=== PATIENT | male | born 1940 ===

== ENCOUNTER → 2018-02-28 | Outpatient (CLI) | payer MEDICARE, OTHER | END | disposition home or self-care (01) | LOC: CFH 09:07 | PROVIDERS: ATTEND Internal Medicine Cardiovascular Disease | DX: I35.8 Other nonrheumatic aortic valve disorders (principal); I10 Essential (primary) hypertension; I44.7 Left bundle-branch block, unspecified | CPT/HCPCS: 93306 ==

== ENCOUNTER 2020-04-19 12:29 | Inpatient (IN) | payer MEDICARE, OTHER ==
[~2020-04-19] VITALS: Ht 188 cm; Wt 113.4 kg
[2020-04-19] MEDS ORDERED: SODIUM CHLORIDE FLUSH 10ML SYR IVF ONE (13:30)
[2020-04-19] MEDS ORDERED: SODIUM CHLORIDE 0.9% 1,000ML IVBOLUS ONE (13:30)
[2020-04-19 13:56] LABS: BASOPHILS % (AUTO) 0 % (0-1); EOSINOPHILS % (AUTO) 0 % (1-7); LYMPHOCYTES % (AUTO) 9 % (22-44); MEAN CORPUSCULAR HEMOGLOBIN 27.8 pg (27.5-34.5); MEAN CORPUSCULAR HGB CONC 32.2 g/dL (33.2-36.2); MEAN PLATELET VOLUME 8.5 fL (7.4-10.4); MONOCYTES % (AUTO) 11 % (2-9); NEUTROPHILS % (AUTO) 80 % (42-75); PLATELET COUNT 220 x10^3/uL (130-400); RED BLOOD COUNT 4.23 x10^6/uL (4.38-5.82); RED CELL DISTRIBUTION WIDTH 21.7 % (9.4-14.8)
--- NOTE | 2020-04-19 14:03 | NUR ---
PASSED OUT IN BATHROOM. PT TESTED POSITIVE FOR CHARLENE MUNOZ
[2020-04-19 14:21] LABS: ALBUMIN 3.2 g/dL (3.4-5.0); ANION GAP 8 mmol/L (5-15); CALCIUM 8.7 mg/dL (8.5-10.1); CHLORIDE 100 mmol/L (98-107); CREATININE 0.86 mg/dL (0.7-1.3)
[2020-04-19 14:49] LABS: ANISOCYTOSIS 1+; MD MORPH REVIEW ONLY
[2020-04-19 14:50] LABS: <PLATELET ESTIMATE> ADEQUATE; <PLT MORPHOLOGY> NORMAL PLT MORPH; OVALOCYTES 1+; POLYCHROMASIA 1+
[2020-04-19] MEDS ORDERED: LISI1TAB23 PO (15:37)
[2020-04-19] MEDS ORDERED: wixela (15:38)
[2020-04-19] MEDS ORDERED: ASPIRIN PO (15:42)
[2020-04-19] MEDS ORDERED: SODIUM CHLORIDE FLUSH 10ML SYR IVF PRN (16:00)
[2020-04-19] MEDS ORDERED: SODIUM CHLORIDE 0.9% 1,000 ML IV ONE (16:00)
[2020-04-19] MEDS ORDERED: CEFTRIAXONE PMX 1GM/50ML 50 ML ONE (16:34)
--- NOTE | 2020-04-19 16:39 | NUR ---
HOSPITALIST AT BEDSIDE
[2020-04-19] MEDS ORDERED: CEFTRIAXONE PMX 1GM/50ML 50 ML IVPB ONE (17:00)
[2020-04-19] MEDS ORDERED: AZITHROMYCIN 500 MG in SODIUM CHLORIDE 0.9% 250 ML IVPB ONE (17:00)
--- NOTE | 2020-04-19 17:22 | NUR ---
PT DINNER DELIVERED
[2020-04-19] MEDS ORDERED: ACETAMINOPHEN 325 MG TABLET PO PRN (17:30)
[2020-04-19 17:50] LABS: TROPONIN I < 0.015 ng/mL (0.000-0.045)
[2020-04-19 17:50] LABS: D-DIMER 4.87 ug/mlFEU (0.00-0.52); INTERNATIONAL NORMALIZED RATIO 1.01 (0.93-1.1); PROTHROMBIN TIME 10.7 Seconds (9.6-11.5)
--- NOTE | 2020-04-19 18:11 | NUR ---
PHONE REPORT GIVEN TO DMITRIY LEYVA
[2020-04-19 19:00] VITALS: BP 107/86
[2020-04-19] MEDS ORDERED: LISIN MC SCH (19:30)
[2020-04-19] MEDS ORDERED: HCTZ MC SCH (19:30)
[2020-04-19] MEDS: ENOXAPARIN 30 MG/0.3 ML SQ SCH (20:50)
[2020-04-19] MEDS: ASCORBIC ACID 500 MG TABLET PO SCH (20:50)
[2020-04-19] MEDS: SODIUM CHLORIDE 0.9% 1,000 ML IV SCH (20:51)
[2020-04-19] MEDS: DOXYCYCLINE 100 MG in DEXTROSE 5% 250 ML IV SCH (20:55)
[2020-04-20 00:30] LABS: TROPONIN I < 0.015 ng/mL (0.000-0.045)
[2020-04-20 02:00] VITALS: BP 128/71
[2020-04-20 06:14] LABS: BASOPHILS % (AUTO) 0 % (0-1); EOSINOPHILS % (AUTO) 0 % (1-7); LYMPHOCYTES % (AUTO) 24 % (22-44); MEAN CORPUSCULAR HEMOGLOBIN 27.1 pg (27.5-34.5); MEAN CORPUSCULAR HGB CONC 31.6 g/dL (33.2-36.2); MEAN PLATELET VOLUME 8.6 fL (7.4-10.4); MONOCYTES % (AUTO) 18 % (2-9); NEUTROPHILS % (AUTO) 57 % (42-75); PLATELET COUNT 210 x10^3/uL (130-400); RED BLOOD COUNT 3.89 x10^6/uL (4.38-5.82); RED CELL DISTRIBUTION WIDTH 21.7 % (9.4-14.8)
[2020-04-20 06:22] LABS: ALBUMIN 2.5 g/dL (3.4-5.0); CHLORIDE 106 mmol/L (98-107)
[2020-04-20 06:33] LABS: MD NO
[2020-04-20 06:37] LABS: ALANINE AMINOTRANSFERASE 22 U/L (12-78); ALKALINE PHOSPHATASE 65 U/L (45-117); ANION GAP 8 mmol/L (5-15); BILIRUBIN,TOTAL 0.3 mg/dL (0.2-1.0); CALCIUM 7.6 mg/dL (8.5-10.1); CREATININE 0.55 mg/dL (0.7-1.3); TOTAL PROTEIN 6.4 g/dL (6.4-8.2)
[2020-04-20 08:19] VITALS: BP 152/76
[2020-04-20] MEDS: DOXYCYCLINE 100 MG in DEXTROSE 5% 250 ML IV SCH ×2 (08:59→21:35)
[2020-04-20] MEDS: SODIUM CHLORIDE 0.9% 1,000 ML IV SCH ×2 (09:00→23:45)
[2020-04-20] MEDS: ENOXAPARIN 30 MG/0.3 ML SQ SCH (09:00)
[2020-04-20] MEDS: CHOLECALCIFEROL 5,000u TAB PO SCH (09:00)
[2020-04-20] MEDS: ASPIRIN 325 MG TABLET PO SCH (09:03)
[2020-04-20] MEDS: ZINC SULFATE 220 MG CAPSULE PO SCH (09:03)
[2020-04-20] MEDS: LISINOPRIL 10 MG TABLET PO SCH ×2 (09:04→17:00)
[2020-04-20] MEDS: HYDROCHLOROTHIAZIDE 12.5 MG CAPSULE PO SCH ×2 (09:04→17:00)
[2020-04-20] MEDS: ASCORBIC ACID 500 MG TABLET PO SCH ×2 (09:04→17:00)
[2020-04-20 09:30] VITALS: BP 152/55
[2020-04-20 09:35] VITALS: BP 149/73
[2020-04-20 09:40] VITALS: BP 159/68
[2020-04-20] MEDS: Enoxaparin 1 mg/kg protocol SQ SCH ×2 (11:30→23:30)
[2020-04-20] MEDS ORDERED: PHARMACY MAY ADJ FOR RENAL FX MC PRN (11:30)
[2020-04-20] MEDS: ENOXAPARIN 100 MG/ML SQ SCH ×2 (12:00→23:44)
[2020-04-20] MEDS: CEFTRIAXONE PMX 1GM/50ML 50 ML IV SCH (14:51)
[2020-04-20] MEDS ORDERED: OMNIPAQUE 350 MG/ML, 100ML BOTTLE ONE (18:26)
[2020-04-20 20:04] VITALS: BP 165/80
[2020-04-21 01:50] LABS: MICROSCOPIC NOT IND
[2020-04-21 01:52] VITALS: BP 122/68
[2020-04-21 07:07] VITALS: BP 159/81
[2020-04-21 07:32] LABS: BASOPHILS % (AUTO) 0 % (0-1); EOSINOPHILS % (AUTO) 0 % (1-7); LYMPHOCYTES % (AUTO) 15 % (22-44); MEAN CORPUSCULAR HEMOGLOBIN 27.4 pg (27.5-34.5); MEAN CORPUSCULAR HGB CONC 32.1 g/dL (33.2-36.2); MEAN PLATELET VOLUME 8.4 fL (7.4-10.4); MONOCYTES % (AUTO) 11 % (2-9); NEUTROPHILS % (AUTO) 73 % (42-75); PLATELET COUNT 220 x10^3/uL (130-400); RED BLOOD COUNT 3.92 x10^6/uL (4.38-5.82); RED CELL DISTRIBUTION WIDTH 21.8 % (9.4-14.8)
[2020-04-21 07:43] LABS: ALBUMIN 2.6 g/dL (3.4-5.0); ANION GAP 7 mmol/L (5-15); CALCIUM 8.3 mg/dL (8.5-10.1); CHLORIDE 104 mmol/L (98-107)
[2020-04-21 07:47] LABS: ALANINE AMINOTRANSFERASE 20 U/L (12-78); ALKALINE PHOSPHATASE 70 U/L (45-117); BILIRUBIN,TOTAL 0.5 mg/dL (0.2-1.0); CREATININE 0.65 mg/dL (0.7-1.3); TOTAL PROTEIN 6.7 g/dL (6.4-8.2)
[2020-04-21 07:48] LABS: MD NO
[2020-04-21] MEDS: ASPIRIN 325 MG TABLET PO SCH (09:53)
[2020-04-21] MEDS: DOXYCYCLINE 100 MG in DEXTROSE 5% 250 ML IV SCH ×2 (09:53→20:30)
[2020-04-21] MEDS: HYDROCHLOROTHIAZIDE 12.5 MG CAPSULE PO SCH ×2 (09:53→16:12)
[2020-04-21] MEDS: CHOLECALCIFEROL 5,000u TAB PO SCH (09:54)
[2020-04-21] MEDS: LISINOPRIL 10 MG TABLET PO SCH ×2 (09:54→16:12)
[2020-04-21] MEDS: ZINC SULFATE 220 MG CAPSULE PO SCH (09:54)
[2020-04-21] MEDS: ASCORBIC ACID 500 MG TABLET PO SCH ×2 (09:54→16:12)
[2020-04-21] MEDS: Enoxaparin 1 mg/kg protocol SQ SCH ×2 (11:36→23:30)
[2020-04-21] MEDS: ENOXAPARIN 100 MG/ML SQ SCH ×2 (12:05→23:33)
[2020-04-21 13:42] VITALS: BP 166/81
[2020-04-21] MEDS: CEFTRIAXONE PMX 1GM/50ML 50 ML IV SCH (14:36)
[2020-04-21] MEDS ORDERED: POTASSIUM CHLORIDE 20 MEQ TAB.ER.PRT PO ONE (16:30)
[2020-04-21 19:03] VITALS: BP 136/70
[2020-04-21] MEDS ORDERED: DEXAMETHASONE 4 MG/ML, 5ML ONE (19:57)
[2020-04-21] MEDS: DEXAMETHASONE 4 MG/ML, 1ML IVPush SCH (20:30)
[2020-04-22 00:14] VITALS: BP 151/73
[2020-04-22 06:38] LABS: BASOPHILS % (AUTO) 0 % (0-1); EOSINOPHILS % (AUTO) 0 % (1-7); LYMPHOCYTES % (AUTO) 13 % (22-44); MEAN CORPUSCULAR HEMOGLOBIN 27.3 pg (27.5-34.5); MEAN CORPUSCULAR HGB CONC 31.7 g/dL (33.2-36.2); MEAN PLATELET VOLUME 8.6 fL (7.4-10.4); MONOCYTES % (AUTO) 10 % (2-9); NEUTROPHILS % (AUTO) 77 % (42-75); PLATELET COUNT 230 x10^3/uL (130-400); RED BLOOD COUNT 3.95 x10^6/uL (4.38-5.82); RED CELL DISTRIBUTION WIDTH 21.6 % (9.4-14.8)
[2020-04-22 06:40] VITALS: BP 153/80
[2020-04-22 06:40] LABS: MD NO
[2020-04-22 06:48] LABS: ANION GAP 7 mmol/L (5-15); CALCIUM 8.5 mg/dL (8.5-10.1); CHLORIDE 104 mmol/L (98-107); CREATININE 0.54 mg/dL (0.7-1.3)
[2020-04-22] MEDS ORDERED: DEXAMETHASONE 4 MG/ML, 5ML ONE (08:29)
[2020-04-22] MEDS: DOXYCYCLINE 100 MG in DEXTROSE 5% 250 ML IV SCH (08:37)
[2020-04-22] MEDS: DEXAMETHASONE 4 MG/ML, 1ML IVPush SCH (08:38)
[2020-04-22] MEDS: HYDROCHLOROTHIAZIDE 12.5 MG CAPSULE PO SCH ×2 (08:38→16:26)
[2020-04-22] MEDS: ZINC SULFATE 220 MG CAPSULE PO SCH (08:38)
[2020-04-22] MEDS: ASCORBIC ACID 500 MG TABLET PO SCH ×2 (08:38→16:26)
[2020-04-22] MEDS: CHOLECALCIFEROL 5,000u TAB PO SCH (08:38)
[2020-04-22] MEDS: ASPIRIN 325 MG TABLET PO SCH (08:38)
[2020-04-22] MEDS: LISINOPRIL 10 MG TABLET PO SCH ×2 (08:38→16:26)
[2020-04-22] MEDS ORDERED: REMDESIVIR 200 MG in SODIUM CHLORIDE 0.9% 250 ML IVPB ONE (12:00)
[2020-04-22] MEDS: ENOXAPARIN 100 MG/ML SQ SCH ×2 (12:15→23:54)
[2020-04-22 12:41] VITALS: BP 126/71
[2020-04-22] MEDS: CEFTRIAXONE PMX 1GM/50ML 50 ML IV SCH (14:50)
[2020-04-22 19:11] VITALS: BP 132/76
[2020-04-22] MEDS: DOXYCYCLINE 100MG TABLET PO SCH (21:15)
[2020-04-23] VITALS: BP 154/77
[2020-04-23 05:59] LABS: BASOPHILS % (AUTO) 0 % (0-1); EOSINOPHILS % (AUTO) 0 % (1-7); LYMPHOCYTES % (AUTO) 9 % (22-44); MEAN CORPUSCULAR HEMOGLOBIN 27.2 pg (27.5-34.5); MEAN PLATELET VOLUME 8.4 fL (7.4-10.4); MONOCYTES % (AUTO) 9 % (2-9); NEUTROPHILS % (AUTO) 81 % (42-75); PLATELET COUNT 274 x10^3/uL (130-400); RED BLOOD COUNT 3.79 x10^6/uL (4.38-5.82); RED CELL DISTRIBUTION WIDTH 21.3 % (9.4-14.8)
[2020-04-23 06:05] LABS: MD NO
[2020-04-23 06:12] LABS: ALBUMIN 2.4 g/dL (3.4-5.0); ANION GAP 6 mmol/L (5-15); CALCIUM 8.4 mg/dL (8.5-10.1); CHLORIDE 104 mmol/L (98-107)
[2020-04-23 06:13] LABS: ALANINE AMINOTRANSFERASE 25 U/L (12-78); ALKALINE PHOSPHATASE 59 U/L (45-117); BILIRUBIN,TOTAL 0.3 mg/dL (0.2-1.0); CREATININE 0.66 mg/dL (0.7-1.3); TOTAL PROTEIN 6.5 g/dL (6.4-8.2)
[2020-04-23 06:18] VITALS: BP 147/81
[2020-04-23] MEDS: ASCORBIC ACID 500 MG TABLET PO SCH ×2 (07:45→16:18)
[2020-04-23] MEDS: CHOLECALCIFEROL 5,000u TAB PO SCH (07:45)
[2020-04-23] MEDS: ZINC SULFATE 220 MG CAPSULE PO SCH (07:45)
[2020-04-23] MEDS: ASPIRIN 325 MG TABLET PO SCH (07:45)
[2020-04-23] MEDS: DOXYCYCLINE 100MG TABLET PO SCH ×2 (07:46→20:05)
[2020-04-23] MEDS: DEXAMETHASONE 4 MG/ML, 1ML IVPush SCH (07:46)
[2020-04-23] MEDS: HYDROCHLOROTHIAZIDE 12.5 MG CAPSULE PO SCH (07:52)
[2020-04-23] MEDS: LISINOPRIL 10 MG TABLET PO SCH ×2 (07:53→16:18)
[2020-04-23] MEDS ORDERED: FLUTICASONE NASAL SPRAY 16GM NAS PRN (10:00)
[2020-04-23 12:13] VITALS: BP 117/67
[2020-04-23] MEDS: ENOXAPARIN 100 MG/ML SQ SCH (12:23)
[2020-04-23] MEDS: REMDESIVIR 100 MG in SODIUM CHLORIDE 0.9% 250 ML IVPB SCH (12:23)
[2020-04-23] MEDS: CEFTRIAXONE PMX 1GM/50ML 50 ML IV SCH (14:31)
[2020-04-23] MEDS: THIAMINE 100MG TABLET PO SCH (16:18)
[2020-04-23 19:57] VITALS: BP 125/75
[2020-04-23] MEDS: MELATONIN 5 MG TABLET PO SCH (20:05)
[2020-04-24] MEDS: ENOXAPARIN 100 MG/ML SQ SCH ×2 (00:30→13:26)
[2020-04-24 00:59] VITALS: BP 132/72
[2020-04-24 06:35] LABS: ALBUMIN 2.4 g/dL (3.4-5.0); ANION GAP 8 mmol/L (5-15); CALCIUM 8.6 mg/dL (8.5-10.1); CHLORIDE 106 mmol/L (98-107)
[2020-04-24 06:39] LABS: ALANINE AMINOTRANSFERASE 27 U/L (12-78); ALKALINE PHOSPHATASE 58 U/L (45-117); BILIRUBIN,TOTAL 0.4 mg/dL (0.2-1.0); CREATININE 0.64 mg/dL (0.7-1.3); TOTAL PROTEIN 6.6 g/dL (6.4-8.2)
[2020-04-24 07:04] VITALS: BP 134/72
[2020-04-24] MEDS ORDERED: DEXAMETHASONE 4 MG/ML, 5ML ONE (09:09)
[2020-04-24] MEDS: ASCORBIC ACID 500 MG TABLET PO SCH ×2 (09:18→16:43)
[2020-04-24] MEDS: ZINC SULFATE 220 MG CAPSULE PO SCH (09:18)
[2020-04-24] MEDS: CHOLECALCIFEROL 5,000u TAB PO SCH (09:18)
[2020-04-24] MEDS: ASPIRIN 325 MG TABLET PO SCH (09:19)
[2020-04-24] MEDS: DOXYCYCLINE 100MG TABLET PO SCH ×2 (09:19→20:01)
[2020-04-24] MEDS: THIAMINE 100MG TABLET PO SCH (09:19)
[2020-04-24] MEDS: DEXAMETHASONE 4 MG/ML, 1ML IVPush SCH (09:20)
[2020-04-24] MEDS: LISINOPRIL 10 MG TABLET PO SCH ×2 (09:35→18:31)
[2020-04-24 12:12] VITALS: BP 121/64
[2020-04-24] MEDS: REMDESIVIR 100 MG in SODIUM CHLORIDE 0.9% 250 ML IVPB SCH (13:27)
[2020-04-24] MEDS: CEFTRIAXONE PMX 1GM/50ML 50 ML IV SCH (16:44)
[2020-04-24 19:51] VITALS: BP 155/69
[2020-04-24] MEDS: MELATONIN 5 MG TABLET PO SCH (20:01)
[2020-04-24 23:55] VITALS: BP 151/71
[2020-04-25] MEDS: ENOXAPARIN 120MG/0.8ML SQ SCH ×2 (00:17→12:02)
[2020-04-25 04:00] VITALS: BP 155/75
[2020-04-25 04:01] VITALS: BP 135/73
[2020-04-25 06:59] VITALS: BP 141/67
[2020-04-25 07:21] LABS: ANION GAP 6 mmol/L (5-15); CALCIUM 8.4 mg/dL (8.5-10.1); CHLORIDE 106 mmol/L (98-107)
[2020-04-25 07:26] LABS: ALANINE AMINOTRANSFERASE 34 U/L (12-78); ALBUMIN 2.2 g/dL (3.4-5.0); ALKALINE PHOSPHATASE 59 U/L (45-117); BILIRUBIN,TOTAL 0.5 mg/dL (0.2-1.0); CREATININE 0.55 mg/dL (0.7-1.3); TOTAL PROTEIN 6.3 g/dL (6.4-8.2)
[2020-04-25] MEDS ORDERED: DEXAMETHASONE 4 MG/ML, 5ML ONE (08:43)
[2020-04-25] MEDS: ZINC SULFATE 220 MG CAPSULE PO SCH (08:58)
[2020-04-25] MEDS: ASCORBIC ACID 500 MG TABLET PO SCH ×2 (08:58→16:48)
[2020-04-25] MEDS: THIAMINE 100MG TABLET PO SCH (08:58)
[2020-04-25] MEDS: CHOLECALCIFEROL 5,000u TAB PO SCH (08:58)
[2020-04-25] MEDS: DEXAMETHASONE 4 MG/ML, 1ML IVPush SCH (08:58)
[2020-04-25] MEDS: DOXYCYCLINE 100MG TABLET PO SCH ×2 (08:59→20:19)
[2020-04-25] MEDS: ASPIRIN 325 MG TABLET PO SCH (08:59)
[2020-04-25] MEDS: LISINOPRIL 10 MG TABLET PO SCH ×2 (10:05→16:48)
[2020-04-25] MEDS: REMDESIVIR 100 MG in SODIUM CHLORIDE 0.9% 250 ML IVPB SCH (12:01)
[2020-04-25 13:18] VITALS: BP 138/74
[2020-04-25] MEDS: CEFTRIAXONE PMX 1GM/50ML 50 ML IV SCH (14:23)
[2020-04-25 19:58] VITALS: BP 139/72
[2020-04-25] MEDS: APIXABAN 5 MG TABLET PO SCH (20:20)
[2020-04-25] MEDS: MELATONIN 5 MG TABLET PO SCH (20:20)
[2020-04-26 00:41] VITALS: BP 161/77
[2020-04-26 05:02] LABS: ALBUMIN 2.1 g/dL (3.4-5.0); ANION GAP 5 mmol/L (5-15); CALCIUM 8.4 mg/dL (8.5-10.1); CHLORIDE 107 mmol/L (98-107)
[2020-04-26 05:22] LABS: ALANINE AMINOTRANSFERASE 35 U/L (12-78); ALKALINE PHOSPHATASE 61 U/L (45-117); BILIRUBIN,TOTAL 0.3 mg/dL (0.2-1.0); CREATININE 0.52 mg/dL (0.7-1.3); TOTAL PROTEIN 6.2 g/dL (6.4-8.2)
[2020-04-26 08:06] VITALS: BP 167/77
[2020-04-26] MEDS ORDERED: DEXAMETHASONE 4 MG/ML, 5ML ONE (08:39)
[2020-04-26] MEDS: APIXABAN 5 MG TABLET PO SCH (08:51)
[2020-04-26] MEDS: CHOLECALCIFEROL 5,000u TAB PO SCH (08:51)
[2020-04-26] MEDS: ASPIRIN 325 MG TABLET PO SCH (08:51)
[2020-04-26] MEDS: ZINC SULFATE 220 MG CAPSULE PO SCH (08:51)
[2020-04-26] MEDS: THIAMINE 100MG TABLET PO SCH (08:51)
[2020-04-26] MEDS: DOXYCYCLINE 100MG TABLET PO SCH (08:51)
[2020-04-26] MEDS: ASCORBIC ACID 500 MG TABLET PO SCH ×2 (08:52→17:14)
[2020-04-26] MEDS: DEXAMETHASONE 4 MG/ML, 1ML IVPush SCH (08:52)
[2020-04-26] MEDS: LISINOPRIL 10 MG TABLET PO SCH ×2 (09:17→17:14)
[2020-04-26] MEDS ORDERED: CHOL500045 PO (11:54)
[2020-04-26] MEDS ORDERED: MELA5TAB14 PO (11:54)
[2020-04-26] MEDS ORDERED: THIA100T67 PO (11:54)
[2020-04-26] MEDS ORDERED: ZINC220C7 PO (11:54)
[2020-04-26] MEDS ORDERED: APIX5TAB PO ×2 (11:54)
[2020-04-26] MEDS ORDERED: ASCO500T9 PO (11:54)
[2020-04-26] MEDS: CEFTRIAXONE PMX 1GM/50ML 50 ML IV SCH (13:00)
[2020-04-26] MEDS: REMDESIVIR 100 MG in SODIUM CHLORIDE 0.9% 250 ML IVPB SCH (13:00)
[2020-04-26 13:08] VITALS: BP 122/66
[2020-04-26] MEDS ORDERED: METH4TAB2 PO (15:35)
== END 2020-04-26 19:13 | disposition home health service (06) | DRG 177 ==
LOC: ED 15:29 → EDIP 15:51 → 4WST 18:34 → EDIP 18:35 → 4WST 19:08
PROVIDERS: ADMIT Family Medicine; ATTEND Family Medicine
DX: U07.1 COVID-19 (principal); J12.89 Other viral pneumonia; J96.01 Acute respiratory failure with hypoxia; E87.1 Hypo-osmolality and hyponatremia; I82.592 Chronic embolism and thrombosis of other specified deep vein of left lower extremity; D72.810 Lymphocytopenia; D64.9 Anemia, unspecified; E86.0 Dehydration; R73.9 Hyperglycemia, unspecified; Z66 Do not resuscitate; I10 Essential (primary) hypertension; J45.909 Unspecified asthma, uncomplicated; Y93.E1 Activity, personal bathing and showering; Z79.82 Long term (current) use of aspirin; Z82.3 Family history of stroke; Z87.891 Personal history of nicotine dependence; Z95.828 Presence of other vascular implants and grafts; Z79.899 Other long term (current) drug therapy
CPT/HCPCS: 36415; 71045; 71275; 80048; 80053; 81003; 82040; 83605; 83735; 84100; 84443; 84484; 85025; 85379; 85384; 85610; 86140; 87040; 93005; 93306; 93970; 96374; 99291; G0378; J0456; J0696; J1100; J1650; J7060; Q9967; J7030; J7050

== ENCOUNTER 2020-05-23 19:11 | Inpatient (IN) | payer MEDICARE, OTHER ==
[~2020-05-23] VITALS: Ht 188 cm; Wt 105.2 kg
[~2020-05-23 19:11] MED LIST: APIX5TAB PO; ASCO500T9 PO; ASPIRIN PO; CHOL500045 PO; LISI1TAB23 PO; MELA5TAB14 PO; METH4TAB2 PO; THIA100T67 PO; ZINC220C7 PO; wixela
[2020-05-23] MEDS ORDERED: SODIUM CHLORIDE FLUSH 10ML SYR IVF ONE (19:30)
[2020-05-23] MEDS ORDERED: SODIUM CHLORIDE 0.9% 1,000ML IVBOLUS ONE (19:30)
--- NOTE | 2020-05-23 19:37 | NUR ---
pt bib remsa, chief complaint of syncope episode x2. pt a&ox4, calm and cooperative. on cr monitor, side rails up x2 and call light within reach.
[2020-05-23 19:44] LABS: BASOPHILS % (AUTO) 1 % (0-1); EOSINOPHILS % (AUTO) 0 % (1-7); LYMPHOCYTES % (AUTO) 5 % (22-44); MEAN CORPUSCULAR HEMOGLOBIN 27.2 pg (27.5-34.5); MEAN CORPUSCULAR HGB CONC 31.2 g/dL (33.2-36.2); MEAN PLATELET VOLUME 7.8 fL (7.4-10.4); MONOCYTES % (AUTO) 3 % (2-9); NEUTROPHILS % (AUTO) 91 % (42-75); PLATELET COUNT 502 x10^3/uL (130-400); RED BLOOD COUNT 4.02 x10^6/uL (4.38-5.82); RED CELL DISTRIBUTION WIDTH 22.5 % (9.4-14.8)
[2020-05-23 19:56] LABS: ALBUMIN 2.7 g/dL (3.4-5.0); ANION GAP 5 mmol/L (5-15); CALCIUM 8.8 mg/dL (8.5-10.1); CHLORIDE 105 mmol/L (98-107); MD NO
[2020-05-23 20:02] LABS: ALANINE AMINOTRANSFERASE 20 U/L (12-78); ALKALINE PHOSPHATASE 70 U/L (45-117); BILIRUBIN,TOTAL 0.4 mg/dL (0.2-1.0); CREATININE 0.91 mg/dL (0.7-1.3); TOTAL PROTEIN 6.8 g/dL (6.4-8.2); TROPONIN I < 0.015 ng/mL (0.000-0.045)
[2020-05-23 20:15] LABS: INTERNATIONAL NORMALIZED RATIO 1.03 (0.93-1.1); PROTHROMBIN TIME 10.9 Seconds (9.6-11.5)
[2020-05-23] MEDS ORDERED: CEFTRIAXONE PMX 1GM/50ML 50 ML ONE (20:51)
[2020-05-23] MEDS ORDERED: GUAIFENESIN/DM 200-20MG, 10ML UDC PO PRN (21:00)
[2020-05-23] MEDS ORDERED: SODIUM CHLORIDE 0.9% 1,000 ML IV SCH (21:00)
[2020-05-23] MEDS ORDERED: CEFTRIAXONE PMX 1GM/50ML 50 ML IVPB ONE (21:00)
[2020-05-23] MEDS ORDERED: ACETAMINOPHEN 325 MG TABLET PO PRN (21:00)
[2020-05-23] MEDS ORDERED: DOCUSATE 100 MG CAPSULE PO PRN (21:00)
[2020-05-23] MEDS ORDERED: HEPARIN 5,000 UNITS/ML, 1ML SQ SCH (21:00)
[2020-05-23] MEDS ORDERED: AZITHROMYCIN 500 MG in SODIUM CHLORIDE 0.9% 250 ML IVPB ONE (21:00)
--- NOTE | 2020-05-23 21:07 | NUR ---
ONE SET OF BLOOD CULTURES DRAWN.
--- NOTE | 2020-05-23 22:05 | NUR ---
HOSPITAL BED REQUESTED.
[2020-05-23 22:50] LABS: PLATELET (DIC) 447 x10^3/uL (130-400)
--- NOTE | 2020-05-23 22:53 | NUR ---
REPORT TO FRANCIS IZAGUIRRE.
[2020-05-23 22:59] LABS: C-REACTIVE PROTEIN, QUANT 0.38 mg/dL (0.02-0.49)
[2020-05-23 23:03] LABS: TROPONIN I < 0.015 ng/mL (0.000-0.045)
[2020-05-23 23:22] LABS: FIBRINOGEN 331 mg/dL (200-340); PROTIME 10.4 Seconds (9.6-11.5); PTT 22 Seconds (25-31)
[2020-05-23 23:50] LABS: D-DIMER (DIC) > 35.00 ug/mlFEU (0.00-0.52)
--- NOTE | 2020-05-24 00:10 | NUR ---
PT RESTING IN FLOOR BED, PT A SLEEP WITH NO CURRENT WANTS OR NEEDS. PT BREATHS EQUAL AND UNLABORED. PT ON MONITOR WITH VSS.
--- NOTE | 2020-05-24 02:00 | NUR ---
PT RESTING IN FLOOR BED, PT A SLEEP WITH NO CURRENT WANTS OR NEEDS. PT BREATHS EQUAL AND UNLABORED. PT ON MONITOR WITH VSS.
[2020-05-24] MEDS ORDERED: ALBUTEROL HFA 90 MCG/SPRAY INH PRN (04:30)
[2020-05-24 05:25] LABS: BASOPHILS % (AUTO) 1 % (0-1); EOSINOPHILS % (AUTO) 5 % (1-7); LYMPHOCYTES % (AUTO) 12 % (22-44); MEAN CORPUSCULAR HEMOGLOBIN 28.3 pg (27.5-34.5); MEAN PLATELET VOLUME 7.6 fL (7.4-10.4); MONOCYTES % (AUTO) 10 % (2-9); NEUTROPHILS % (AUTO) 72 % (42-75); PLATELET COUNT 435 x10^3/uL (130-400); RED CELL DISTRIBUTION WIDTH 21.9 % (9.4-14.8)
[2020-05-24 05:34] LABS: ANION GAP 4 mmol/L (5-15); CALCIUM 8.6 mg/dL (8.5-10.1); CHLORIDE 107 mmol/L (98-107)
[2020-05-24 05:35] LABS: MD NO
[2020-05-24 05:39] LABS: CREATININE 0.72 mg/dL (0.7-1.3); TROPONIN I < 0.015 ng/mL (0.000-0.045)
--- NOTE | 2020-05-24 07:10 | NUR ---
RECEIVED REPORT FROM FRANCIS Aparicio RN.
--- NOTE | 2020-05-24 07:25 | NUR ---
PT RESTING IN BED IN NAD. PT DENIES ANY NEEDS AT THIS TIME AND REFUSED BREAKFAST RIGHT NOW. PT ON MONITOR AND CALL LIGHT WITHIN REACH.
[2020-05-24] MEDS ORDERED: APIXABAN 5 MG TABLET ONE (08:44)
[2020-05-24] MEDS: APIXABAN 5 MG TABLET PO SCH ×2 (08:52→19:55)
--- NOTE | 2020-05-24 08:57 | NUR ---
PT GIVEN MEAL TRAY. PT DENIES FURTHER NEEDS. TEMP WAS 97.9.
--- NOTE | 2020-05-24 10:00 | NUR ---
REPORT TO ELIAS Mccartney RN.
--- NOTE | 2020-05-24 10:20 | NUR ---
ASSUMED CARE OF PT. PT RESTING OF GURNEY AWAITING TRANSFER TO FLOOR. VSS. NAD. WILL CONTINUE TO MONITOR
--- NOTE | 2020-05-24 10:20 | NUR ---
REPORT RECEIVED FROM BERNICE IZAGUIRRE
[2020-05-24] MEDS ORDERED: OMNIPAQUE 350 MG/ML, 100ML BOTTLE ONE (10:51)
[2020-05-24] MEDS ORDERED: LISI1TAB39 PO (10:56)
--- NOTE | 2020-05-24 11:09 | NUR ---
PT RETURNED FROM CT. MONITORS RECONNECTED. IV RESTARTED. CALL LIGHT W/IN REACH. PT STATES NO NEEDS AT THIS TIME.
--- NOTE | 2020-05-24 11:10 | NUR ---
Note rama in [facility] - 05/24/20 at 1111 by [place] PT. STICKER GIVEN TO MOE DE OLIVEIRA FOR REQUEST OF INFORMATION FROM [facility] PER NURSING INSTRUCTION. TESTING MANAGER REQUESTED INFORMATION.
--- NOTE | 2020-05-24 11:11 | NUR ---
PT STICKER GIVEN TO [employer] TO SEND TO [facility] FOR RECORDS REQUEST PER NURSING INSTRUCTION. REQUEST SENT
--- NOTE | 2020-05-24 11:14 | NUR ---
SPOKE TO PHARMACIST REGARDING LISINPRIL/HCTZ CLARIFICATION. REPORTED THAT PER THE PT. HE TAKES ONE PILL 1X DAY IN THE MORNING. PHARMACIST TO SEND MEDICATION
--- NOTE | 2020-05-24 12:49 | NUR ---
REPORT FROM ELIAS IZAGUIRRE.
[2020-05-24] MEDS: HYDROCHLOROTHIAZIDE 12.5 MG CAPSULE PO SCH (12:50)
[2020-05-24] MEDS: LISINOPRIL 10 MG TABLET PO SCH (12:50)
--- NOTE | 2020-05-24 12:50 | NUR ---
CONTACTED DR. LAGOS REGARDING REQUESTED RECORDS FROM [facility]. RN REPORTED NOT-DETECTED COVID TEST FROM 05/11/20. PER WANDA MARTINEZ TO SEND PT TO NON COVID UNIT
--- NOTE | 2020-05-24 13:18 | NUR ---
PROVIDED LUNCH TO PT. SITTING ON CHAIR EATING LUNCH, ALL NEEDS MET AT THIS TIME.
--- NOTE | 2020-05-24 15:45 | NUR ---
REPORT GIVEN TO CAMILLA IZAGUIRRE.
[2020-05-24 17:36] VITALS: BP 148/77
[2020-05-24 17:37] VITALS: BP 152/77
[2020-05-24 17:38] VITALS: BP 159/75
[2020-05-24 20:59] VITALS: BP 120/69
[2020-05-24] MEDS ORDERED: AZITHROMYCIN 500 MG in SODIUM CHLORIDE 0.9% 250 ML IV SCH (21:00)
[2020-05-24] MEDS: DOXYCYCLINE 100MG CAP PO SCH (22:21)
[2020-05-24] MEDS: CEFTRIAXONE PMX 1GM/50ML 50 ML IV SCH (22:21)
[2020-05-25 03:47] VITALS: BP 127/75
[2020-05-25 03:54] VITALS: BP 126/75
[2020-05-25 03:55] VITALS: BP 153/80
[2020-05-25 04:51] LABS: BASOPHILS % (AUTO) 1 % (0-1); EOSINOPHILS % (AUTO) 9 % (1-7); LYMPHOCYTES % (AUTO) 17 % (22-44); MEAN CORPUSCULAR HEMOGLOBIN 27.5 pg (27.5-34.5); MEAN CORPUSCULAR HGB CONC 32.3 g/dL (33.2-36.2); MEAN PLATELET VOLUME 7.7 fL (7.4-10.4); MONOCYTES % (AUTO) 14 % (2-9); NEUTROPHILS % (AUTO) 59 % (42-75); PLATELET COUNT 392 x10^3/uL (130-400); RED CELL DISTRIBUTION WIDTH 22.4 % (9.4-14.8)
[2020-05-25 04:55] LABS: ANION GAP 3 mmol/L (5-15); CALCIUM 8.3 mg/dL (8.5-10.1); CHLORIDE 109 mmol/L (98-107); CREATININE 0.65 mg/dL (0.7-1.3)
[2020-05-25 05:58] LABS: MD SCAN
[2020-05-25 06:47] VITALS: BP 138/77
[2020-05-25] MEDS: APIXABAN 5 MG TABLET PO SCH (07:39)
[2020-05-25] MEDS: DOXYCYCLINE 100MG CAP PO SCH ×2 (09:29→21:57)
[2020-05-25] MEDS: HYDROCHLOROTHIAZIDE 12.5 MG CAPSULE PO SCH (09:29)
[2020-05-25] MEDS: LISINOPRIL 10 MG TABLET PO SCH (09:30)
[2020-05-25 12:52] VITALS: BP 161/76
[2020-05-25] MEDS ORDERED: MIDAZOLAM 1 MG/ML, 2ML ONE ×2 (15:45→16:11)
[2020-05-25] MEDS ORDERED: CEFAZOLIN 1,000 MG ONE (15:46)
[2020-05-25] MEDS ORDERED: CEFAZOLIN PMX 1GM/50ML 50 ML ONE (15:46)
[2020-05-25] MEDS ORDERED: LIDOCAINE 1%, 20ML ONE (15:46)
[2020-05-25] MEDS ORDERED: FENTANYL PF 100 MCG/2ML ONE (15:46)
[2020-05-25] MEDS ORDERED: LIDOCAINE 2%, 20ML ONE (16:09)
[2020-05-25] MEDS ORDERED: HOLD MEDICATION MC PRN (17:00)
[2020-05-25] MEDS ORDERED: PHARMACY INSTRUCTION MC PRN (17:30)
[2020-05-25 21:38] VITALS: BP 134/73
[2020-05-25] MEDS: SODIUM CHLORIDE FLUSH 10ML SYR IVF SCH (21:57)
[2020-05-25] MEDS: CEFTRIAXONE PMX 1GM/50ML 50 ML IV SCH (21:57)
[2020-05-26 02:16] VITALS: BP 131/76
[2020-05-26 05:53] LABS: BASOPHILS % (AUTO) 1 % (0-1); EOSINOPHILS % (AUTO) 7 % (1-7); LYMPHOCYTES % (AUTO) 14 % (22-44); MEAN CORPUSCULAR HEMOGLOBIN 27.5 pg (27.5-34.5); MEAN CORPUSCULAR HGB CONC 32.3 g/dL (33.2-36.2); MEAN PLATELET VOLUME 7.7 fL (7.4-10.4); MONOCYTES % (AUTO) 15 % (2-9); NEUTROPHILS % (AUTO) 63 % (42-75); PLATELET COUNT 368 x10^3/uL (130-400); RED CELL DISTRIBUTION WIDTH 22.5 % (9.4-14.8)
[2020-05-26 06:03] LABS: CALCIUM 8.7 mg/dL (8.5-10.1); CHLORIDE 106 mmol/L (98-107)
[2020-05-26 06:10] LABS: ALANINE AMINOTRANSFERASE 18 U/L (12-78); ALBUMIN 2.7 g/dL (3.4-5.0); ALKALINE PHOSPHATASE 64 U/L (45-117); ANION GAP 3 mmol/L (5-15); BILIRUBIN,TOTAL 0.4 mg/dL (0.2-1.0); CREATININE 0.54 mg/dL (0.7-1.3); TOTAL PROTEIN 6.6 g/dL (6.4-8.2)
[2020-05-26 06:22] LABS: MD SCAN
[2020-05-26 08:00] VITALS: BP 136/76
[2020-05-26] MEDS: DOXYCYCLINE 100MG CAP PO SCH (09:00)
[2020-05-26] MEDS ORDERED: APIX5TAB PO (09:39)
[2020-05-26] MEDS ORDERED: CEFD300C37 PO (09:39)
[2020-05-26] MEDS ORDERED: DOXY100C2 PO (09:39)
[2020-05-26] MEDS: SODIUM CHLORIDE FLUSH 10ML SYR IVF SCH (09:47)
[2020-05-26] MEDS: HYDROCHLOROTHIAZIDE 12.5 MG CAPSULE PO SCH (09:48)
[2020-05-26] MEDS: LISINOPRIL 10 MG TABLET PO SCH (09:48)
[2020-05-26 14:00] VITALS: BP 107/63
== END 2020-05-26 17:16 | disposition home health service (06) | DRG 242 ==
LOC: ED 21:35 → EDIP 22:25 → 5SO 05-24 16:27
PROVIDERS: ADMIT Family Medicine; ATTEND Internal Medicine
PROC: 0JH606Z Insertion of Pacemaker, Dual Chamber into Chest Subcutaneous Tissue and Fascia, Open Approach (ICD-10-PCS; principal; 2020-05-25)
PROC: 02HK3JZ Insertion of Pacemaker Lead into Right Ventricle, Percutaneous Approach (ICD-10-PCS; 2020-05-25)
PROC: 02H63JZ Insertion of Pacemaker Lead into Right Atrium, Percutaneous Approach (ICD-10-PCS; 2020-05-25)
DX: I45.5 Other specified heart block (principal); J96.91 Respiratory failure, unspecified with hypoxia; J12.89 Other viral pneumonia; J15.9 Unspecified bacterial pneumonia; D64.9 Anemia, unspecified; D72.829 Elevated white blood cell count, unspecified; E86.0 Dehydration; I10 Essential (primary) hypertension; I44.7 Left bundle-branch block, unspecified; Z86.16 Personal history of COVID-19; R55 Syncope and collapse; J45.909 Unspecified asthma, uncomplicated; Z79.01 Long term (current) use of anticoagulants; Z86.711 Personal history of pulmonary embolism; Z86.718 Personal history of other venous thrombosis and embolism; Z72.89 Other problems related to lifestyle; Z87.891 Personal history of nicotine dependence
CPT/HCPCS: 33208; 36415; 70450; 71045; 71275; 80048; 80053; 82728; 83605; 83615; 83735; 83880; 84145; 84484; 85025; 85049; 85379; 85384; 85610; 85730; 86140; 87040; 93005; 96374; 96375; 99156; 99157; 99285; C1779; C1785; C1892; G0378; J0456; J0690; J0696; J2250; J3010; Q9967; J7030; J7050; U0003